=== PATIENT | female | born 1975 ===

== ENCOUNTER 2024-01-24 04:43 | Emergency (ER) | payer OTHER ==
[2024-01-24] MEDS ORDERED: Sodium Chloride 0.9% 10 ML Syringe FLUSH PRN (05:35)
[2024-01-24] MEDS: hydrALAZINE 20 MG/ML SDV IVPUSH ONE (05:46)
[2024-01-24 05:57] LABS: HEMATOCRIT 29.5 % (37.0-47.0); HEMOGLOBIN 8.9 g/dL (12.0-16.0); MEAN CORPUSCULAR HEMOGLOBIN 27.9 pg (27.0-34.0); MEAN CORPUSCULAR HGB CONC 30.2 g/dL (33.0-35.0); MEAN CORPUSCULAR VOLUME 92.5 fL (80-100); PLATELET COUNT,PLT 174 10^3/uL (150-450); RED BLOOD CELL COUNT 3.19 10^6/uL (4.2-5.4)
[2024-01-24 06:00] LABS: BASOPHILS PERCENT AUTO 0.4 % (0.0-1.0); EOSINOPHILS PERCENT AUTO 0.3 % (1.0-3.0); LYMPHOCYTES PERCENT AUTO 7.2 % (20.5-50.1); MONOCYTES PERCENT AUTO 5.6 % (2-8); NEUTROPHILS PERCENT AUTO 86.5 % (42.2-75.2)
[2024-01-24 06:16] LABS: HCG QUALITATIVE,SERUM NEGATIVE (NEGATIVE); PROTHROMBIN TIME 9.9 SEC (9.0-12.0); PTT,PARTIAL THROMBOPLSTIN TIME 21.1 SEC (22.0-34.0)
[2024-01-24 06:17] LABS: ALANINE AMINOTRANSFERASE,ALT 57 U/L (14-59); ALBUMIN 2.7 g/dL (3.4-5.0); ALKALINE PHOSPHATASE 217 U/L (46-116); ANION GAP 17.3 mEq/L (7-13); ASPARTATE AMNIOTRANSFERASE,AST 56 U/L (15-37); BLOOD UREA NITROGEN,BUN 23 mg/dL (7-18); BUN/CREATININE RATIO 18.9 (No establ ref range); CALCIUM 8.8 mg/dL (8.5-10.1); CARBON DIOXIDE,CO2 23 mmol/L (21-32); CHLORIDE,CL 99 mmol/L (98-107); CREATININE 1.22 mg/dL (0.55-1.02); GLUCOSE RANDOM 233 mg/dL (70-99); LIPASE 163 U/L (16-77); MAGNESIUM 1.8 mg/dL (1.8-2.4); POTASSIUM,K 4.3 mmol/L (3.5-5.1); SODIUM,NA 135 mmol/L (136-145)
[2024-01-24 06:19] LABS: A/G RATIO 0.82; ESTIMATED GFR 54 mL/min (>=60)
[2024-01-24 06:20] LABS: BAND PERCENT MAN 2 %; LYMPHOCYTES PERCENT MAN 7 % (20-50); MONOCYTES PERCENT MAN 3 % (2-8); SEG NEUTROPHILS PERCENT MAN 88 % (42-75)
[2024-01-24 06:21] LABS: LACTIC ACID 4.9 mmol/L (0.4-2.0)
[2024-01-24] MEDS: Iopamidol 612 MG/ML 100 ML Bottle IVPUSH ONE (06:51)
[2024-01-24 07:12] LABS: APPEARANCE,URINE CLEAR (CLEAR); BILIRUBIN,URINE NEGATIVE (NEGATIVE); COLOR,URINE YELLOW (YELLOW); GLUCOSE,URINE 100 (NEGATIVE); KETONES,URINE NEGATIVE (NEGATIVE); LEUKOCYTE ESTERASE,URINE NEGATIVE (NEGATIVE); NITRITE,URINE NEGATIVE (NEGATIVE); OCCULT BLOOD,URINE NEGATIVE (NEGATIVE); PROTEIN,URINE 100 (NEGATIVE); UROBILINOGEN,URINE 0.2 mg/dL (0.2-1.0)
[2024-01-24 07:38] LABS: BACTERIA,URINE OCCASIONAL /HPF (0-FEW/HPF); EPITHELIAL CELLS,URINE FEW /HPF (NOT SEEN); MUCUS,URINE OCCASIONAL /LPF (NOT SEEN); RBC,URINE NOT SEEN /HPF (0-5); WBC,URINE 0-5 /HPF (0-5/HPF)
[2024-01-24] MEDS: Rifaximin 550 MG Tab PO ONE (08:06)
[2024-01-24] MEDS: Ondansetron 4 MG/2 ML SDV IVPUSH ONE (08:16)
[2024-01-24] MEDS: Morphine 2 MG/ML SYRINGE IVPUSH ONE ×2 (08:16→10:38)
[2024-01-24] MEDS: Lactulose Soln 10 GM/15 ML 30 ML UD Cup PO ONE (09:53)
[2024-01-24] MEDS: Sodium Chloride 0.9% 500 ML IV ONE (14:47)
[2024-01-24] MEDS: Sodium Chloride 0.9% 1,000 ML IV SCH (14:48)
== END 2024-01-24 14:50 ==
LOC: DL.ED 04:43
DX: A41.9 Sepsis, unspecified organism (principal); K76.82 Hepatic encephalopathy; C22.8 Malignant neoplasm of liver, primary, unspecified as to type; N17.9 Acute kidney failure, unspecified; D64.9 Anemia, unspecified
CPT/HCPCS: 36415; 71260; 72126; 72129; 72132; 74177; 80053; 81001; 82140; 83605; 83690; 83735; 84703; 85025; 85610; 85730; 86140; 87040; 96365; 96375; 96376; 99285; 99285-25; A9270-GY; J0360; J2270; J2405; J3490; J7030; Q9967